=== PATIENT | male | born 1935 | race Caucasian/White ===

== ENCOUNTER 2019-04-02 15:55 | Emergency (ER) | payer MEDICARE, MEDICAID, SELFPAY ==
--- NOTE | ~2019-04-02 | XR_ITS ---
EXAMINATION: XR shoulder LT min 2V DATE: 04/02/2019 16:47 INDICATION: Left shoulder injury. TECHNIQUE: 4 views of left shoulder were obtained. COMPARISON: None. FINDINGS: Bone alignment is normal. No fracture. There is mild osteoarthritis of glenohumeral joint a nd acromioclavicular joint. IMPRESSION: 1. Mild polyarticular osteoarthritis. Reviewed, dictated and finalized at location A. [employer] SUPERVISOR
--- NOTE | ~2019-04-02 | XR_ITS ---
EXAMINATION: XR hand LT min 3V DATE: 04/02/2019 16:47 INDICATION: Left hand injury. TECHNIQUE: 3 views of left hand were obtained. COMPARISON: Left hand radiographs 06/24/2016 FINDINGS: Bone alignment is normal. No fracture. There is severe osteoarthritis of first carpometacar pal joint and mild osteoarthritis of fourth and fifth metacarpophalangeal joints and first interphala ngeal joint. There is an ossicle distal to the radial styloid. IMPRESSION: 1. Polyarticular osteoarthritis. Reviewed, dictated and finalized at location A. [employer] OFFICER
[2019-04-02 16:05] VITALS: BP 150/66; PULSE 66; RESP 20; TEMP 36.3; O2SAT 100
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
== END 2019-04-02 17:20 | disposition home or self-care (01) ==
PROVIDERS: Emergency Provider Registered Nurse
DX: S69.92XA Unspecified injury of left wrist, hand and finger(s), initial encounter (principal); W19.XXXA Unspecified fall, initial encounter; S80.211A Abrasion, right knee, initial encounter; M25.512 Pain in left shoulder; M19.012 Primary osteoarthritis, left shoulder; M19.90 Unspecified osteoarthritis, unspecified site; N40.0 Benign prostatic hyperplasia without lower urinary tract symptoms; E03.9 Hypothyroidism, unspecified; G40.909 Epilepsy, unspecified, not intractable, without status epilepticus; F79 Unspecified intellectual disabilities
CPT/HCPCS: 73030; 73130; 99214; G0463

== ENCOUNTER 2023-01-24 16:13 | Emergency (ER) | payer MEDICARE, MEDICAID, SELFPAY ==
--- NOTE | ~2023-01-24 | XR_ITS ---
XR lumbar spine 2-3V 01/24/2023 16:54 Indication: Status post fall. Low back pain. Procedure: 3 views lumbar spine Comparison: No prior studies for comparison. Findings: There is mild superior endplate compression deformities of L1 and L2, age indeterminate. Th ere is loss of disc height at all lumbar levels with grade 1 to degenerative spondylolisthesis at L5- S1. There is severe multilevel facet hypertrophy. There is levoscoliosis. Pedicles intact. Sacral for amen are symmetric. Impression: 1: Mild superior endplate compression deformities of L1 and L2, age indeterminate. 2: Severe lumbar spondylosis. Reviewed, dictated and finalized at location L. [employer] ROOM [employer]ORER Impression: 1: Mild superior endplate compression deformities of L1 and L2, age indetermina te. 2: Severe lumbar spondylosis.
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
[2023-01-24 16:28] VITALS: BP 151/82; PULSE 72; RESP 20; TEMP 36.6; O2SAT 100
[2023-01-24 17:04] VITALS: BP 151/82; PULSE 72; RESP 20; TEMP 36.6; O2SAT 100
== END 2023-01-24 17:17 | disposition home or self-care (01) ==
PROVIDERS: Emergency Provider Nurse Practitioner
DX: S32.010A Wedge compression fracture of first lumbar vertebra, initial encounter for closed fracture (principal); S32.020A Wedge compression fracture of second lumbar vertebra, initial encounter for closed fracture; W03.XXXA Other fall on same level due to collision with another person, initial encounter; M19.90 Unspecified osteoarthritis, unspecified site; N40.0 Benign prostatic hyperplasia without lower urinary tract symptoms; E03.9 Hypothyroidism, unspecified; F03.90 Unspecified dementia, unspecified severity, without behavioral disturbance, psychotic disturbance, mood disturbance, and anxiety; G40.909 Epilepsy, unspecified, not intractable, without status epilepticus
CPT/HCPCS: 72100; 99213; G0463